=== PATIENT | male | born 1925 | race Caucasian/White ===

== ENCOUNTER 2017-01-20 11:09 | Emergency (ER) | payer MEDICARE, OTHER ==
[2017-01-20 11:18] VITALS: BP 140/87
[2017-01-20] MEDS ORDERED: MORPHINE SULFATE 4 MG/ML SYRG IM ONE (11:26)
--- OUTSIDE RECORDS SUMMARY | 2017-01-20 11:27 | XMS REPORT | Continuity of Care Document ---
:1925 Author Organization [facility] [place] [address] Care Team Providers Name Role Phone Daniel Raya Primary Care Provider [phone] Source Comments This disclosure is being made pursuant to the [employer]Ksolar program and maynot contain all information available regarding this patient.[facility] Active Allergies and Adverse Reactions Not on File Current Medications Be aware that medications may not be up to date as of this document. Alwaysverify current medications with the patient. Prescription Sig. Disp. Refills Start Date End Date Status ascorbic acid (VITAMIN C) Take by mouth. Active 1000 MG tablet aspirin-dipyridamole Take by mouth. Active (AGGRENOX) 25-200 MG per 12 hr capsule finasteride (PROSCAR) 5 MG Take 5 mg by 07/14/2010 Active tablet mouth. Multiple Vitamins-Minerals Take by mouth. Active (MULTIVITAMIN ADULT PO) fish oil 1000 MG CAPS Take by mouth. Active simvastatin (ZOCOR) 80 MG Take 80 mg by Active tablet mouth. terazosin (HYTRIN) 2 MG Take 2 mg by 06/03/2008 Active capsule mouth. Active Problems Problem Noted Date Nocturia 10/24/2012 Overview: Overview: FELI MURGUIA MD Urinary frequency 08/12/2011 Overview: Overview: FELI MURGUIA MD Special screening for malignant neoplasm of prostate 08/04/2010 Overview: Overview: FELI MURGUIA MD Enlarged prostate with lower urinary tract symptoms (LUTS) 04/20/2006 Overview: Overview: FELI MURGUIA MD Most Recent Encounters Date Type Specialty Providers Description 11/03/2016 Data Import Social History Tobacco Use Types Packs/Day Years Used Date Never Smoker Last Filed Vital Signs Vital Sign Reading Time Taken Blood Pressure 138/78 10/24/2012 11:28 AM ADMINISTRATIVE AIDE Pulse - - Temperature - - Respiratory Rate - - Height 1.753 m (5' 9") 08/12/2011 9:54 AM CDT Weight 112.946 kg (249 lb) 10/24/2012 11:28 AM ADMINISTRATIVE AIDE Body Mass Index 36.75 10/24/2012 11:28 AM ADMINISTRATIVE AIDE Oxygen Saturation - - Plan of Care Health Maintenance Due Date Last Done Comments Tetanus/Pertussis (1 - Tdap) 1946 Well Adult Visit 1977 Zoster Vaccine 60+ 1987 Pneumococcal Low/Medium Risk 65+ (1 of 2 - PCV13) 1992 Influenza Immunization (#1) 2016 Results from Last 3 Months Not on file
--- OUTSIDE RECORDS SUMMARY | 2017-01-20 11:28 | XMS REPORT | Continuity of Care Document ---
:1925 Author Organization [facility] ([facility]) Address [address] [place] [address] Phone [phone] Care Team Providers Name Role Phone Ricardo Santillan Primary Care Provider [phone] Source Comments This disclosure is being made pursuant to the Care Everywhere program, applicable federal and state laws, and may not contain all informaitonavailable regarding this patient.[facility] ([facility]) Active Allergies and Adverse Reactions No Known Allergies Current Medications Prescription Sig. Disp. Refills Start Date End Date Status aspirin-dipyridamole Take 1 capsule by 06/19/2009 Active (AGGRENOX) 25-200 mg per mouth 2 times capsule daily atorvastatin 40 mg tablet Take 40 mg by 05/20/2014 Active mouth daily finasteride 5 mg tablet Take 5 mg by mouth 06/22/2010 Active daily fluticasone 50 Use 2 Sprays into Active mcg/Actuation nasal spray both nostrils daily omega-3 fatty acids 1 gram Take 2 g by mouth Active capsule 2 times daily. multivitamin tablet Take 1 tablet by Active mouth daily. cholecalciferol (VITAMIN Active D3) PO Active Problems Problem Noted Date Coronary artery disease Overview: Formatting of this note may be different from the original. CARDIOVASCULAR PROCEDURES ECHO/MUGA: Echo (There is mild concentric left ventricular hypertrophy. Left ventricular systolic function is normal. There is trace mitral regurgitation. Right ventricular systolic pressure is elevated at 30-40mmHg. There is aortic valve sclerosis without stenosis. ) - 10/04/2007 Hyperlipidemia Hypertension Social History Tobacco Use Types Packs/Day Years Used Date Never Smoker Alcohol Use Drinks/Week oz/Week Comments No Last Filed Vital Signs Vital Sign Reading Time Taken Blood Pressure 110/58 06/09/2016 1:34 PM CDT Pulse 68 06/09/2016 1:34 PM CDT Temperature - - Respiratory Rate - - Height 1.778 m (5' 10") 06/09/2016 1:34 PM CDT Weight 105.235 kg (232 lb) 06/09/2016 1:34 PM CDT Body Mass Index 33.29 06/09/2016 1:34 PM CDT Oxygen Saturation - - Plan of Care Date Type Specialty Providers Description 06/08/2017 Appointment Heart and Vascular Gricelda Hernandez MD Chief Comp: Patient [address] [place] [address] Visit [phone] (Fax) Health Maintenance Due Date Last Done Comments Hepatitis B Vaccine (1 of 3 - Primary Series) 1925 Tdap Vaccine 1938 Lipid Disorder Screening 1945 Td Vaccine 1945 Zoster Vaccine 1987 Pneumococcal Vaccine (1 of 2 - PCV13) 1992 Influenza Vaccine: Seasonal (#1) 06/20/2016 Results from Last 3 Months Not on file
[2017-01-20] MEDS ORDERED: MORPHINE SULFATE 2 MG/ML DISP.SYRIN ONE (11:31)
--- NOTE | 2017-01-20 11:37 | ERNOTE ---
Lower Extremity HPI - Narrative Date of Service: 01/20/17 - General Lower Extremities Pain: hip: right Time Seen by Provider: 01/20/17 11:18 Source: patient Exam Limitations: no limitations - Immun/Allergies/Home Medications Immunizations: IMMUNIZATION HX Immunizations Up to Date No History of Influenza Vaccine No Hx Pneumococcal Vaccination No Allergies/Adverse Reactions: Allergies Allergy/AdvReac Type Severity Reaction Status Date / Time No Known Allergies Allergy Verified 01/20/17 11:18 Home Medications: HOME MEDICATIONS Acetaminophen [Tylenol] 650 mg PO QID 03/03/13 [Last Taken 04/16/16 21:00] Finasteride [Proscar] 5 mg PO DAILY 03/03/13 [Last Taken 04/15/16 19:00] [place] Patent-3 Fatty Acids [Fish Oil] 1,000 mg PO BID 03/03/13 [Last Taken 04/16/16 06: 00] Cholecalciferol (Vitamin D3) [Vitamin D3] 1,000 unit PO DAILY 06/26/14 [Last Taken 04/16/16 06:00] Multivitamin [Multi Vitamin Daily] 1 each PO DAILY 06/26/14 [Last Taken 06/28/14 ] Atorvastatin Calcium [Lipitor] 40 mg PO DAILY 04/16/16 [Last Taken 04/15/16 19: 00] Dextran 70/Hypromellose [Artificial Tears Eye Drops] 15 ml OP TID PRN 04/17/16 [ Last Taken 04/16/16 06:00] Docusate Sodium [Colace] 200 mg PO BID 04/17/16 [Last Taken 04/16/16 07:00] Fluticasone Propionate [Flonase] 2 spray NS HS 04/17/16 [Last Taken 04/15/16 21: 00] Sennosides [Natural Vegetable Laxative] 25.8 mg PO BID 04/17/16 [Last Taken 06:00] Aspirin/Dipyridamole [Aggrenox 25 mg-200 mg Capsule] 1 each PO BID 01/20/17 [ Last Taken Unknown] Hydrocodone/Acetaminophen [[place] 5-325 Tablet] 1 tab PO Q6H PRN 01/20/17 [Last Taken Unknown] Linaclotide [Linzess] 145 mcg PO DAILY 01/20/17 [Last Taken Unknown] oxyCODONE HCL/ACETAMINOPHEN [Percocet 5 MG/325 MG] 1 tab PO Q4H PRN #20 tab 02/03 [Last Taken Unknown] - History of Present Illness Narrative: Pt. comes in with c/o R hip pain. Pt. states that he has had the pain for years and when it gets severe he goes to his primary provider and gets a shot in the hip and it gets better. But pt. saw his PCP two days ago and got the shot and it did not improve this time and the vicodin he is taking also is not working. Pt. denies any numbness or tingling but states that movement and ambulation worsen the symptoms. Review of Systems - Review of Systems Constitutional: Present: no symptoms reported. Absent: recent illness, fever, chills, weakness, fatigue, malaise EYE: Present: no symptoms reported ENT: Present: no symptoms reported Respiratory: Present: no symptoms reported. Absent: shortness of breath, cough , wheezing Cardiology: Present: no symptoms reported. Absent: chest pain, palpitations, edema Gastrointestinal/Abdominal: Present: no symptoms reported. Absent: nausea, vomiting, diarrhea, abdominal pain Genitourinary: Present: no symptoms reported. Absent: frequency, pain, dysuria Musculoskeletal: Present: joint pain - L post hip. Absent: back pain Skin: Present: no symptoms reported. Absent: rash, change in color Neurological: Present: no symptoms reported. Absent: headache, dizziness/light- headedness, numbness, tingling All Other Systems: All systems neg except as marked - Patient's Past Medical History Patient History - Medical: Osteoarthritis, Rheumatoid Arthritis Patient History - Cardiac/Respiratory: Coronary Heart Disease, CVA/Stroke Patient History - Cancer: No Hx of Cancer Patient History - Surgical Procedures: Coronary Bypass Surgery, Total Knee Replacement, Other Patient History - Other: None - Family History Mother Family History - Medical: Family History - Cardiac/Respiratory: No pertinent hx Father Family History - Medical: Family History - Cardiac/Respiratory: No pertinent hx - Social History Living Situations: home Abuse History: No History of abuse Psych History: No pertinent hx Does anyone smoke in the home?: No Alcohol Use: none Drug Use: none - Immunizations Immunizations Up to Date: No Hx Pneumococcal Vaccination: No History of Influenza Vaccine: No Physical Exam - Physical Exam General Appearance: Present: wd/wn, alert, no apparent distress Eye Exam: Normal inspection: bilateral, PERRL: bilateral, EOMI: bilateral Ears, Nose, Throat: Present: normal ENT inspection, normal pharynx Neck: Present: normal inspection, nontender. Absent: lymphadenopathy (R), lymphadenopathy (L) Respiratory: Present: no respiratory distress, normal breath sounds, no accessory muscle use, chest nontender, lungs clear Cardiovascular/Chest: Present: no murmur, normal peripheral pulses, bradycardia Gastrointestinal/Abdominal: Present: normal bowel sounds, nontender, nondistended, soft, no organomegaly Back Exam: Present: normal inspection, normal range of motion, no CVA tenderness , no vertebral tenderness Extremity Exam: Present: decreased range of motion - R hip, other - tender ness with palpation of R hip joint Neurological Exam: Present: alert, oriented, normal mood/affect, no motor/ sensory deficits, tree specialist II-XII nml as tested, normal cerebellar test Skin Exam: Present: normal color, warm/dry. Absent: pallor, skin rash ED Progress - Date and Time Seen: Date and Time: 01/20/17 12:27 Discussed dangers of narcotic pain relief in elderly with pt,. and . Pt. would like to try and switch to something besides vicodin and wants it to be stronger than vicodin as this is not working for him. - Vital Signs Patient's Vital Signs:: I have reviewed the patient's vital signs. Vital Signs: Vital Signs 01/20/17 11:14 Temperature 36.2 C L Pulse Rate 57 L Respiratory 12 Rate Blood Pressure 140/87 O2 Sat by Pulse 96 Oximetry - X-Ray X-Ray #1 X-Ray: hip Interpretation: Reviewed by me X-ray Comments: joint degeneration of R hip - Progress/Reassessment Chief Complaint: Hip Pain/Injury Departure Clinical Impression: Degenerative arthritis of hip Qualifiers: Osteoarthritis type: primary Laterality: right Qualified Code(s): M16.11 - Unilateral primary osteoarthritis, right hip - Departure Disposition: Home self-care Condition: Good Instructions: Hip Pain Additional Instructions: Please follow up with orthopedic provider in 2-3 days. Please stop vicodin and start percocet. Please be careful of falling. Prescriptions: oxyCODONE HCL/ACETAMINOPHEN [Percocet 5 MG/325 MG] 1 tab PO Q4H PRN #20 tab PRN Reason: Pain
== END 2017-01-20 12:37 | disposition home or self-care (01) ==
LOC: ER 11:09
DX: M16.11 Unilateral primary osteoarthritis, right hip (principal); M06.9 Rheumatoid arthritis, unspecified; I25.2 Old myocardial infarction; Z86.73 Personal history of transient ischemic attack (TIA), and cerebral infarction without residual deficits